=== PATIENT | female | born 1990 ===

== ENCOUNTER 2018-04-07 13:00 | Inpatient (IN) | payer OTHER ==
[~2018-04-07] VITALS: Ht 165.1 cm; Wt 172.0 kg
[2018-04-17] MEDS ORDERED: PNEU16DI2 (11:05)
[2018-04-17] MEDS ORDERED: PRENATABS RX T1 EACH PO (11:05)
== END 2018-04-19 13:44 | disposition home or self-care (01) | DRG 807 ==
LOC: LDR 04-17 07:16 → OB/GYN 04-17 07:16 → LDR 04-29 13:00
PROC: 10E0XZZ Delivery of Products of Conception, External Approach (ICD-10-PCS; principal; 2018-04-17)
PROC: 0HQ9XZZ Repair Perineum Skin, External Approach (ICD-10-PCS; 2018-04-17)
PROC: 3E033VJ Introduction of Other Hormone into Peripheral Vein, Percutaneous Approach (ICD-10-PCS; 2018-04-17)
PROC: 4A1HXCZ Monitoring of Products of Conception, Cardiac Rate, External Approach (ICD-10-PCS; 2018-04-17)
DX: O70.0 First degree perineal laceration during delivery (principal); Z37.0 Single live birth; Z3A.38 38 weeks gestation of pregnancy

== ENCOUNTER 2021-02-24 13:10 | Outpatient (CLI) | payer OTHER ==
[~2021-02-24 13:10] MED LIST: PNEU16DI2; PRENATABS RX T1 EACH PO
== END 2021-02-24 14:25 | disposition home or self-care (01) ==
LOC: PRENATAL 13:10
PROVIDERS: ATTEND Obstetrics & Gynecology Maternal & Fetal Medicine
DX: O35.0XX1 Maternal care for (suspected) central nervous system malformation in fetus, fetus 1 (principal); O35.3XX1 Maternal care for (suspected) damage to fetus from viral disease in mother, fetus 1; O98.512 Other viral diseases complicating pregnancy, second trimester; Z36.89 Encounter for other specified antenatal screening; Z3A.22 22 weeks gestation of pregnancy

== ENCOUNTER 2021-04-28 12:25 | Inpatient (IN) | payer OTHER ==
[~2021-04-28] VITALS: Ht 165.1 cm; Wt 70.3 kg
[2021-04-28] MEDS ORDERED: PRENATAL + DHA1 EAC1 (13:08)
== END 2021-05-05 12:31 | disposition home or self-care (01) | DRG 832 ==
LOC: LDR 12:25 → OB/GYN 04-29 18:11
PROVIDERS: ADMIT Obstetrics & Gynecology; ATTEND Obstetrics & Gynecology
PROC: BY4FZZZ Ultrasonography of Third Trimester, Single Fetus (ICD-10-PCS; principal; 2021-04-28)
DX: O60.03 Preterm labor without delivery, third trimester (principal); O26.873 Cervical shortening, third trimester; Z3A.31 31 weeks gestation of pregnancy

== ENCOUNTER 2021-06-13 07:04 | Inpatient (IN) | payer OTHER ==
[~2021-06-13] VITALS: Ht 167.6 cm; Wt 74.8 kg
[~2021-06-13 07:04] MED LIST changes: +PRENATAL + DHA1 EAC1
== END 2021-06-15 13:04 | disposition home or self-care (01) | DRG 798 ==
LOC: OB/GYN 07:04 → LDR 07:04 → OB/GYN 14:46
PROVIDERS: ADMIT Obstetrics & Gynecology; ATTEND Obstetrics & Gynecology
PROC: 10E0XZZ Delivery of Products of Conception, External Approach (ICD-10-PCS; principal; 2021-06-13)
PROC: 4A1HXFZ Monitoring of Products of Conception, Cardiac Rhythm, External Approach (ICD-10-PCS; 2021-06-13)
PROC: 0UB70ZZ Excision of Bilateral Fallopian Tubes, Open Approach (ICD-10-PCS; 2021-06-14)
DX: O80 Encounter for full-term uncomplicated delivery (principal); Z37.0 Single live birth; Z30.2 Encounter for sterilization; Z3A.38 38 weeks gestation of pregnancy